=== PATIENT | female | born 1975 | race Caucasian/White ===

== ENCOUNTER 2022-12-17 16:09 | Observation (INO) ==
[2022-12-17] MEDS ORDERED: MORPHINE SULFATE INJ 2 MG INJ IVP PRN (18:04)
[2022-12-17] MEDS ORDERED: NS 1,000 ML IV 1,000 ML ONE (18:09)
--- NOTE | 2022-12-17 18:19 | EKG ---
Test Reason : SOB Blood Pressure : */* mmHG Vent. Rate : 71 BPM Atrial Rate : 71 BPM P-R Int : 180 ms QRS Dur : 88 ms QT Int : 392 ms P-R-T Axes : 49 7 11 degrees QTc Int : 425 ms Normal sinus rhythm Nonspecific T wave abnormality Abnormal ECG No previous ECGs available Confirmed by Latrell Castañeda (4) on 12/17/2022 6:35:42 PM Referred By: Confirmed By: Latrell Castañeda
[2022-12-17] MEDS: NS 1,000 ML IV 1,000 ML IV SCH (18:20)
[2022-12-17 18:36] LABS: BASOPHILS % (AUTO) 0.4 % (0.2-1.0); EOSINOPHILS # (AUTO) 0.1 x10^3/uL (0.0-0.2); EOSINOPHILS % (AUTO) 1.9 % (0.9-2.9); HEMATOCRIT 33.8 % (36.0-47.0); HEMOGLOBIN 11.6 g/dL (12.0-16.0); LYMPHOCYTES # (AUTO) 1.6 X10^3/uL (1.3-2.9); LYMPHOCYTES % (AUTO) 25.7 % (21.0-51.0); MEAN CORPUSCULAR HEMOGLOBIN 28.6 pg (27.0-34.0); MEAN CORPUSCULAR HGB CONC 34.3 g/dL (33.0-35.0); MEAN CORPUSCULAR VOLUME 83.6 fL (80.0-100.0); MEAN PLATELET VOLUME 8.9 fL (7.4-11.0); MONOCYTES # (AUTO) 0.6 x10^3/uL (0.3-0.8); MONOCYTES % (AUTO) 9.3 % (0.0-13.0); NEUTROPHILS # (AUTO) 3.9 x10^3/uL (2.2-4.8); NEUTROPHILS % (AUTO) 62.7 % (42.0-75.0); PLATELET COUNT 248 X10^3/uL (150.0-450.0); RED BLOOD COUNT 4.05 X10^6/uL (3.5-5.4); RED CELL DISTRIBUTION WIDTH 14.2 % (11.6-16.5); WHITE BLOOD COUNT 6.3 X10^3/uL (3.6-10.0)
[2022-12-17 18:57] LABS: ALANINE AMINOTRANSFERASE 20 Units/L (12-78); ALBUMIN 3.6 g/dL (3.4-5.0); ALKALINE PHOSPHATASE 62 Units/L (46-116); ASPARTATE AMINO TRANSFERASE 15 Units/L (15-37); BLOOD UREA NITROGEN 13 mg/dL (7-18); CALCIUM 8.1 mg/dL (8.5-10.1); CARBON DIOXIDE 30.8 mmol/L (21-32); CHLORIDE 105 mmol/L (98-107); CREATININE 0.79 mg/dL (0.55-1.02); GLUCOSE 84 mg/dL (65-99); POTASSIUM 3.4 mmol/L (3.5-5.1); SODIUM 144 mmol/L (136-145); TOTAL PROTEIN 6.5 g/dL (6.4-8.2); eGFR NON BLACK RACES > 60 (>60)
[2022-12-17 19:00] VITALS: BMI 22.4
[2022-12-17] MEDS ORDERED: VISTARIL PO PRN (19:21)
[2022-12-17] MEDS ORDERED: AMBIEN PO PRN (19:21)
[2022-12-17] MEDS ORDERED: K-RIDER 10 MEQ/NS 100 ML 10 MEQ/100 ML BAG IV PRN (20:07)
[2022-12-17] MEDS ORDERED: POTASSIUM CHLORIDE LIQ 20 MEQ UDC PO PRN (20:07)
[2022-12-17] MEDS ORDERED: K-DUR TAB 20 MEQ PO PRN (20:07)
[2022-12-17] MEDS ORDERED: POTASSIUM CHL 40 MEQ/NS 0.45% 500 ML IV PRN (20:07)
[2022-12-17] MEDS ORDERED: MICRO K EXTEN CAP 10 MEQ PO PRN (20:07)
[2022-12-17] MEDS ORDERED: KLOR-CON PO PRN (20:07)
[2022-12-17] MEDS ORDERED: POTASSIUM CHL 60 MEQ/NS 0.45% 500 ML IV PRN (20:07)
[2022-12-17] MEDS: MAGNESIUM SULFATE 1 GRAM/100 mL PREMIX 1 G/100 ML BAG IV PRN ×2 (20:53→21:59)
[2022-12-17] MEDS ORDERED: MELATONIN PO SCH (21:00)
--- NOTE | 2022-12-17 21:14 | EKG ---
Test Reason : SOB Blood Pressure : */* mmHG Vent. Rate : 76 BPM Atrial Rate : 76 BPM P-R Int : 202 ms QRS Dur : 90 ms QT Int : 410 ms P-R-T Axes : 49 19 6 degrees QTc Int : 461 ms Normal sinus rhythm Possible Left atrial enlargement Low voltage QRS Nonspecific T wave abnormality Abnormal ECG When compared with ECG of 17-DEC-2022 18:11, Nonspecific T wave abnormality, worse in Lateral leads Confirmed by Latrell Castañeda (4) on 12/18/2022 5:48:27 PM Referred By: Confirmed By: Latrell Castañeda
[2022-12-17] MEDS ORDERED: TYLENOL 325 MG TAB PO PRN (22:01)
[2022-12-17 22:33] LABS: CREATINE KINASE 64 Units/L (26-192)
[2022-12-17 23:17] LABS: BILIRUBIN,URINE NEGATIVE (NEGATIVE); BLOOD/HEMOGLOBIN,URINE NEGATIVE (NEGATIVE); GLUCOSE, URINE NEGATIVE (NEGATIVE); KETONES,URINE NEGATIVE (NEGATIVE); LEUKOCYTE ESTERASE ,URINE NEGATIVE (NEGATIVE); NITRITES,URINE NEGATIVE (NEGATIVE); PROTEIN,URINE NEGATIVE (NEGATIVE); UROBILINOGEN,URINE NORMAL (NORMAL)
[2022-12-17 23:28] LABS: APPEARANCE,URINE CLEAR (CLEAR); COLOR,URINE STRAW (YELLOW)
[2022-12-18 02:02] LABS: BASOPHILS % (AUTO) 0.5 % (0.2-1.0); EOSINOPHILS # (AUTO) 0.2 x10^3/uL (0.0-0.2); EOSINOPHILS % (AUTO) 2.9 % (0.9-2.9); HEMATOCRIT 33.8 % (36.0-47.0); HEMOGLOBIN 11.6 g/dL (12.0-16.0); LYMPHOCYTES % (AUTO) 34.8 % (21.0-51.0); MEAN CORPUSCULAR HEMOGLOBIN 28.7 pg (27.0-34.0); MEAN CORPUSCULAR HGB CONC 34.3 g/dL (33.0-35.0); MEAN CORPUSCULAR VOLUME 83.9 fL (80.0-100.0); MEAN PLATELET VOLUME 8.9 fL (7.4-11.0); MONOCYTES # (AUTO) 0.6 x10^3/uL (0.3-0.8); MONOCYTES % (AUTO) 9.8 % (0.0-13.0); PLATELET COUNT 241 X10^3/uL (150.0-450.0); RED BLOOD COUNT 4.04 X10^6/uL (3.5-5.4); RED CELL DISTRIBUTION WIDTH 14.2 % (11.6-16.5); WHITE BLOOD COUNT 5.7 X10^3/uL (3.6-10.0)
--- NOTE | 2022-12-18 02:06 | EKG ---
Test Reason : SOB Blood Pressure : */* mmHG Vent. Rate : 67 BPM Atrial Rate : 67 BPM P-R Int : 192 ms QRS Dur : 88 ms QT Int : 434 ms P-R-T Axes : 52 11 37 degrees QTc Int : 458 ms Normal sinus rhythm Possible Left atrial enlargement Low voltage QRS Septal infarct , age undetermined Abnormal ECG When compared with ECG of 17-DEC-2022 21:06, (Unconfirmed) Septal infarct is now present Nonspecific T wave abnormality no longer evident in Inferior leads Nonspecific T wave abnormality, improved in Anterolateral leads Confirmed by Latrell Castañeda (4) on 12/18/2022 5:48:05 PM Referred By: Confirmed By: Latrell Castañeda
[2022-12-18 02:13] LABS: ALANINE AMINOTRANSFERASE 17 Units/L (12-78); ALBUMIN 3.2 g/dL (3.4-5.0); ALKALINE PHOSPHATASE 54 Units/L (46-116); ASPARTATE AMINO TRANSFERASE 14 Units/L (15-37); BLOOD UREA NITROGEN 10 mg/dL (7-18); CALCIUM 7.7 mg/dL (8.5-10.1); CARBON DIOXIDE 28.7 mmol/L (21-32); CHLORIDE 108 mmol/L (98-107); COR CA(FOR HYPOALB) 8.3 mg/dL (8.5-10.1); CREATININE 0.64 mg/dL (0.55-1.02); GLUCOSE 104 mg/dL (65-99); MAGNESIUM 2.3 mg/dL (2.0-2.9); POTASSIUM 3.7 mmol/L (3.5-5.1); SODIUM 144 mmol/L (136-145); TOTAL PROTEIN 6.1 g/dL (6.4-8.2); eGFR NON BLACK RACES > 60 (>60)
[2022-12-18] MEDS: NS 1,000 ML IV 1,000 ML IV SCH ×2 (05:22→08:42)
--- NOTE | 2022-12-18 06:19 | RAD ---
HISTORYCHEST PAIN, LEFT ARM PARATHESIASTUDYCHEST, 1 [id number] trachea is midline. The cardiac silhouette is unremarkable . The lungs are clear without focal infiltrate or effusion. The bony thorax is unremarkable.IMPRESSIONNo acute cardiopulmonary disease.Electronically signed by: OSCAR THAYER (December 18, 2022 06:17:17)
[2022-12-18] MEDS ORDERED: TOPROL XL PO SCH (09:00)
[2022-12-18 12:31] VITALS: BP 123/83; PULSE 70; TEMP 97.5; O2SAT 98
--- NOTE | 2022-12-18 13:09 | CT ---
HISTORYDIZZINESS, PARASTHESIA, HX OF BRAIN TUMORSTUDYBRAIN W/O CONCOMPARISONMRI brain dated 07/08/2022TECHNIQUEMultiple axial images of the brain were obtained from the skull base to the vertex without administration of IV contrast. Dose reduction techniques including Automated Exposure Control (AEC) and adjustment of mA and kV were utilized.FINDINGSNo acute intraparenchymal hemorrhage or mass can be identified. Parafalcine meningioma is only seen on image 18 of sagittal reconstructions. No extra-axial fluid collections are seen. No alteration in the attenuation of the brain parenchyma can be identified to suggest acute or subacute ischemic change. The ventricular system is symmetric and nondilated. The extracranial structures appear unremarkable.IMPRESSIONNo acute intracranial process can be identified.Parafalcine meningioma is observed on sagittal imaging but not seen due to volume averaging on axial imaging.Electronically signed by: OSCAR THAYER (December 18, 2022 13:08:34)
--- NOTE | 2022-12-18 16:32 | DR.CARTERS ---
Short Stay Summary - Admission Date Date of Admission: 12/17/22 - Discharge Date Discharge Date: 12/18/22 - Admission Diagnoses (1) Chest pain, rule out acute myocardial infarction Status: Acute (2) Arm paresthesia, left Status: Acute (3) Neck pain Status: Acute (4) Blurred vision Status: Acute (5) Dizziness Status: Acute (6) HTN (hypertension) Status: Acute - Hospital Course Hospital Course: IS A 47 YEAR OLD PATIENT OF OURS. SHE WAS A DIRECT ADMISSION, OBSERVATION STATUS, FOR FURTHER EVALUATION AND TREATMENT OF CHEST PAIN RULE OUT ACUTE VA, LEFT ARM PARASTHESIA, NECK PAIN, BLURRED VISION, AND DIZZINESS. SHE REPORTED THAT HER SYMPTOMS OF DIZZINESS AND BLURRED VISION STARTED ABOUT A WEEK AGO, BUT THE NECK PAIN AND LEFT ARM PARASTHESIA STARTED ON 12/16. HER PMH INCLUDES: MENINGIOMA BRAIN TUMOR, VERTIGO, HTN, IRRITABLE BOWEL SYNDROME, LIVER CYST, ARTHRITIS, SPONDYLOSIS, ANEMIA, ANXIETY, APPENDECTOMY, . SHE HAS A STRONG FAMILY HISTORY OF CORONARY ARTERY DISEASE. ON ARRIVAL TO THE ER, VITALS WERE: 98.2-78-18-98%-126/78. LABS WERE OBTAINED. WBC 6.3, RBC 4.05, HGB 11.6, HCT 33.8, PLT COUNT 248, SODIUM 144, POTASSIUM 3.4, CHLORIDE 105, BUN 13, CREATININE 0.79, GLUCOSE 84, CALCIUM 8.1, MAGNESIUM 1.8, AST 15, ALT 20, ALK PHOS 62, CREATINE KINASE 69, TROPONIN 3.7, TOTAL PROTEIN 6.5, ALBUMIN 3.6. A URINALYSIS WAS OBTAINED AND WAS UNREMARKABLE. A URINE CULTURE WAS SET UP. AN EKG WAS OBTAINED AND REVEALED: NORMAL SINUS RHYTHM WITH HR 71 BPM. SHE WAS STARTED ON NORMAL SALINE AT 80 ML/HR, MORPHINE 1MG IV Q4H PRN, VISTARIL 25MG PO Q8H PRN, AMBIEN 5MG PO HS PRN, MELATONIN 5MG PO HS, MELATONIN 5MG PO HS, TYLENOL 650MG PO Q6H PRN, AND THE POTASSIUM AND MAGNESIUM PROTOCOLS. WE PLANNED TO REPEAT SERIAL CARDIAC ENZYMES AND EKGs AND FOLLOW UP WITH AM LABS. 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 ON MORNING ROUNDS, PATIENT IS ALERT AND ORIENTED, LYING IN BED ON MORNING ROUNDS. SHE DENIES ANY PRESENT CHEST PAIN, BLURRED VISION, DIZZINESS, NUMBNESS, OR NECK PAIN. SHE DENIES ANY SYMPTOMS SINCE ADMISSION. ON EXAMINATION TODAY, HEART IS REGULAR IN RATE AND RHYTHM. BILATERAL LUNGS ARE CLEAR TO AUSCULTATION. ABDOMEN IS ROUND, SOFT, AND NON-TENDER WITH NORMAL BOWEL SOUNDS NOTED IN ALL QUADRANTS. GOOD MOVEMENT TO UPPER AND LOWER EXTREMITIES WERE NOTED WITH NO EDEMA. HER VITALS THIS MORNING WERE: 98.9-75-18-96%-132/60. LABS WERE OBTAINED. WBC 5.7, RBC 4.04, HGB 11.6, HCT 33.8, PLT COUNT 141, SODIUM 144, POTASSIUM 3.7, CHLORIDE 108, BUN 10, CREATININE 0.64, GLUCOSE 104, CALCIUM 7.7, MAGNESIUM 2.3, AST 14, ALT 17, ALK PHOS 54, TOTAL PROTEIN 6.1, ALBUMIN 3.2. REPEAT CARDIAC ENZYMES WERE NEGATIVE. NO CHANGES NOTED TO EKGs. A CHEST XRAY WAS OBTAINED THIS MORNING AND WAS NEGATIVE FOR ACUTE ABNORMALITY. BRAIN CT WITHOUT CONTRAST WAS OBTAINED AND REVEALED: No acute intracranial process can be identified. Parafalcine meningioma is observed on sagittal imaging but not seen due to volume averaging on axial imaging. ECHO WAS OBTAINED AND WAS ESSENTIALLY NORMAL. EJECTION FRACTION WAS 65%. WE CONSULTED , [employer] L[employer]GE RECEPTIONIST. HE HAS CLEARED PATIENT FOR DISCHARGE AND PLANS TO DO AN OUTPATIENT CARDIAC STRESS TEST SINCE SHE IS NOW ASYMPTOMATIC. WE ARE IN AGREEMENT WITH PLANS. WE PLANNED FOR DISCHARGE. INSTRUCTIONS FOR MEDICATIONS AND FOLLOW-UP WERE DISCUSSED WITH PATIENT. SHE WAS INSTRUCTED TO CONTINUE HER CURRENT MEDICATIONS WITH NO CHANGES MADE TO DOSAGES. WE WILL FOLLOW-UP WITH HER IN THE OFFICE NEXT WEEK. SHE WILL FOLLOW-UP WITH IN HIS OFFICE WELL. PATIENT VERBALIZED UNDERSTAND ING OF ALL ORDERS. SHE WAS DISCHARGED HOME IN STABLE CONDITION. TIME SPENT ON CLINICAL ASSESSMENT, REVIEWING LABS AND IMAGING, DECISION MAKING, DISCHARGE INSTRUCTIONS, PREPARING DISCHARGE PAPERS, AND DOCUMENTATION GREATER THAN 75 MINUTES. - Discharge Medications Discharge Medications: Home Medication List melatonin 5 mg chewable tablet 5 mg PO QPM 12/17/22 [History] metoprolol succinate 25 mg tablet,extended release 24 hr 1 tab PO DAILY 12/17/22 [History] Prescriptions: - Discharge Plan Disposition: HOME, SELF-CARE Condition: Stable - Follow up/Referrals Follow up/Referrals: Sylvie Dolan [Nurse Practitioner] - 12/25/22 10:50 am Latrell Castañeda [STAFF PHYSICIAN] - (Referral sent - Office will call with appointment) - Instructions Instructions: Paresthesia, Nonspecific Chest Pain, Adult, [id number], Dizziness, [id number] Additional Instructions: DIET TOLERATED. ACTIVITY TOLERATED.
== END 2022-12-18 14:30 | disposition home or self-care (01) ==
LOC: MED/SURG
PROVIDERS: ADMIT Internal Medicine; ATTEND Internal Medicine